=== PATIENT | male | born 1990 | race Caucasian/White ===

== ENCOUNTER 2021-01-17 01:40 | Emergency (ER) | payer BC ==
[~2021-01-17] VITALS: Ht 185.4 cm; Wt 115.7 kg
[2021-01-17 02:41] LABS: HEMATOCRIT 42.3 % (36.7-47.1); MEAN CORPUSCULAR HEMOGLOBIN 29.2 uug (23.8-33.4); MEAN CORPUSCULAR VOLUME 85.6 fL (73.0-96.2); PLATELET COUNT (AUTO) 195 K/uL (152-348)
[2021-01-17 03:05] LABS: POTASSIUM 4.1 mmol/L (3.5-5.1)
[2021-01-17 03:11] LABS: BILIRUBIN,DIRECT 0.1 mg/dL (0.0-0.2); BILIRUBIN,TOTAL 0.3 mg/dL (0.2-1.0); TOTAL PROTEIN, SERUM 7.9 g/dL (6.4-8.2)
--- NOTE | 2021-01-17 03:51 | NUR ---
Patient is resting comfortably in bed with eyes closed, no acute distress noted.
--- NOTE | 2021-01-17 05:30 | NUR ---
Patient is resting comfortably in bed with eyes closed, no acute distress noted.
[2021-01-17 06:31] VITALS: BP 120/70
--- NOTE | 2021-01-17 06:31 | NUR ---
Patient discharged to home in stable condition. Written and verbal after care instructions given. Patient verbalizes understanding of instructions. Stressed follow up or return to ER for worsening s/s. Patient ambulates with steady gait, V/S stable, IV line removed, and left with all personal belongings.
== END 2021-01-17 06:31 | disposition home or self-care (01) ==
LOC: ER 01:42
DX: R07.9 Chest pain, unspecified (principal); Z87.891 Personal history of nicotine dependence; Z83.3 Family history of diabetes mellitus; F41.9 Anxiety disorder, unspecified
CPT/HCPCS: 36415; 70030-TC; 71045; 85025; 93005; A4663